=== PATIENT | female | born 1935 | race Caucasian/White ===

== ENCOUNTER 2016-05-26 12:00 | Inpatient (IN) | payer OTHER ==
[~2016-05-26] VITALS: Ht 152.4 cm; Wt 72.0 kg
[~2016-05-26 12:00] MED LIST: ACTOS15 MG PO; AMARYL2 MG PO; AMARYL4 MG PO; AMLOD-VALSA-HC1 EAC4 PO; AMLODIPINE-VAL1 EACH PO; APRESOLINE50 MG PO; ASPIRIN325 MG PO; ATACAND4 MG PO; ATACAND8 MG PO; CALCIUM 600 +1 EAC9 PO; CELEBREX200 MG PO; CRESTOR20 MG PO; Coumadin,Jantoven PO; DONEPEZIL HCL10 MG PO; ECOTRIN325 MG PO; ESOMEPRAZOLE MA40 MG PO; Ecotrin PO; FLEXERIL10 MG PO; HUMULIN R100 UNITS/ SC; HYDRALAZINE HCL10 MG PO; HYDROCHLOROTHIA25 MG PO; JANUVIA100 MG PO; JANUVIA25 M1 PO; LANTUS 3 M100 UNITS1 SC; LOPRESSOR100 M1 PO; LOSARTAN-HCTZ1 EAC3 PO; LOVENOX80 MG/0.8 SC; MELOXICAM7.5 MG PO; METOPROLOL SUC100 MG PO; METOPROLOL TART50 MG PO; NAMENDA XR28 MG PO; NEXIUM40 MG PO; NORCO 5/3251 TABLET PO; NORVASC10 M1 PO; Norvasc PO; Senokot S,Pericolace PO; TYLENOL REGULA325 MG PO; VITAMIN D31000 UNIT PO; Vicodin,Norco 5/325 PO; ZOLOFT25 MG PO; celeBREX PO; warfarin
[2016-05-26 13:29] LABS: ADD MIUA? YES; BILIRUBIN NEGATIVE; BLOOD NEGATIVE; COLOR YELLOW ((YELLOW)); GLUCOSE (STRIP) NEGATIVE; KETONES NEGATIVE; LEUKOCYTES LARGE; NITRITE NEGATIVE; PROTEIN (STRIP) 30; UROBILINOGEN 0.2 MG/DL (0.2-1.0)
[2016-05-26 13:41] LABS: TROP-I INTERPRETATION NEGATIVE; TROPONIN-I < 0.01 ng/mL (0.0-0.30)
[2016-05-26 13:45] LABS: BACTERIA 2+; EPITHELIAL CELLS 1+; MUCUS NONE SEEN; RED BLOOD CELLS RARE /HPF (0-5); UCUL ADDED? YES
[2016-05-26 13:46] LABS: CASTS PRESENT /LPF; COARSE GRANULAR CASTS RARE /LPF; CRYSTALS NONE SEEN; HYALINE CASTS RARE /LPF
[2016-05-26 14:12] LABS: HEMATOCRIT 37.5 % (36.0-46.0); MCH 29.4 PG (29.0-34.0); MCHC 33.1 G/DL (30.0-36.0); MCV 88.9 FL (83-99); MEAN PLAT.VOLUME 10.2 uM^3 (9.5-12.4); PLATELET COUNT 135 K/uL (156-360); RBC DIS.WIDTH-CV 14.3 % (11.8-14.6); RBC DIS.WIDTH-SD 45.9 % (39-53); RED BLOOD COUNT 4.22 M/uL (3.80-5.20); WHITE BLOOD COUNT 13.6 K/uL (4.1-10.2)
[2016-05-26 14:23] LABS: CHLORIDE 110 mEq/L (99-109); POTASSIUM 3.9 mEq/L (3.7-5.4); SODIUM 142 mEq/L (136-147)
[2016-05-26 14:25] LABS: GLUCOSE 210 mg/dL (70-99)
[2016-05-26 14:26] LABS: ANION GAP 13 MEQ/L (2-14)
[2016-05-26 14:29] LABS: GFR ESTIMATE (CALCULATED) 57 mL/min/; UREA NITROGEN (BUN) 17 mg/dL (9-23)
[2016-05-26] MEDS ORDERED: APRESOLINE50 MG PO (15:17)
[2016-05-26] MEDS ORDERED: HUMALOG100 UNIT/1 SC (15:20)
[2016-05-26] MEDS ORDERED: METFORMIN HCL500 M1 PO (15:21)
[2016-05-26 19:32] LABS: Estimated Average Glucose 160 mg/dL (70-123)
[2016-05-26 19:47] LABS: HEMOGLOBIN A1c (GLYCOHEMOGLOB) 7.2 % HGB (Below 5.7)
[2016-05-27 00:12] VITALS: BP 194/81
[2016-05-27 01:33] LABS: POINT-OF-CARE METER ID UU13113717
[2016-05-27 04:35] VITALS: BP 188/77
[2016-05-27 06:56] LABS: HEMATOCRIT 38.8 % (36.0-46.0); MCH 28.5 PG (29.0-34.0); MCHC 31.7 G/DL (30.0-36.0); MEAN PLAT.VOLUME 10.3 uM^3 (9.5-12.4); PLATELET COUNT 151 K/uL (156-360); RBC DIS.WIDTH-CV 14.7 % (11.8-14.6); RBC DIS.WIDTH-SD 48.1 % (39-53); RED BLOOD COUNT 4.31 M/uL (3.80-5.20); WHITE BLOOD COUNT 12.7 K/uL (4.1-10.2)
[2016-05-27 07:12] LABS: INTER. NORMALIZED RATIO 1.1; PROTHROMBIN TIME 10.8 (9.2-11.2); PTT 29.1 (25-32)
[2016-05-27 07:16] LABS: ANION GAP 11 MEQ/L (2-14); CHLORIDE 104 MEQ/L (99-109); GFR ESTIMATE (CALCULATED) 57 mL/min/; GLUCOSE 181 mg/dL (70-99); POTASSIUM 3.9 MEQ/L (3.7-5.4); SAMPLE HEMOLYSIS CHECK 0; SAMPLE ICTERIC CHECK 0; SAMPLE LIPEMIA CHECK 0; SODIUM 140 MEQ/L (136-147); UREA NITROGEN (BUN) 15 mg/dL (9-23)
[2016-05-27 07:59] VITALS: BP 190/79
[2016-05-27 10:25] VITALS: BP 163/87
[2016-05-27 12:39] LABS: POINT-OF-CARE METER ID UU14149397
[2016-05-27 17:25] VITALS: BP 189/77
[2016-05-27 17:39] LABS: POINT-OF-CARE METER ID UU13113717
[2016-05-27 20:07] LABS: POINT-OF-CARE USER ID 515036437
[2016-05-27 21:52] VITALS: BP 151/81
[2016-05-28 00:48] LABS: POINT-OF-CARE METER ID UU13113717
[2016-05-28 03:43] VITALS: BP 147/62
[2016-05-28 06:23] LABS: POINT-OF-CARE METER ID UU14149397
[2016-05-28 06:30] LABS: EOSINOPHIL (%) 1.7 % (0-5); EOSINOPHIL COUNT 0.2 K/uL (0-0.3); HEMATOCRIT 32.8 % (36.0-46.0); IMMATURE GRANULOCYTE (%) 0.3 % (0.0-0.7); LYMPHOCYTE COUNT 1.6 K/uL (1.0-2.8); MCH 27.8 PG (29.0-34.0); MCHC 30.8 G/DL (30.0-36.0); MCV 90.4 FL (83-99); MEAN PLAT.VOLUME 10.9 uM^3 (9.5-12.4); MONOCYTE (%) 6.6 % (3-12); MONOCYTE COUNT 0.8 K/uL (0-0.8); NEUTROPHIL (%) 78.4 % (45-76); NEUTROPHIL COUNT 9.8 K/uL (1.8-6.4); PLATELET COUNT 110 K/uL (156-360); RBC DIS.WIDTH-CV 14.9 % (11.8-14.6); RBC DIS.WIDTH-SD 48.7 % (39-53); RED BLOOD COUNT 3.63 M/uL (3.80-5.20); WHITE BLOOD COUNT 12.5 K/uL (4.1-10.2)
[2016-05-28 06:44] LABS: ANION GAP 11 MEQ/L (2-14); CHLORIDE 107 MEQ/L (99-109); GFR ESTIMATE (CALCULATED) 39 mL/min/; GLUCOSE 169 mg/dL (70-99); SAMPLE HEMOLYSIS CHECK 0; SAMPLE ICTERIC CHECK 0; SAMPLE LIPEMIA CHECK 0; SODIUM 141 MEQ/L (136-147)
[2016-05-28 06:56] LABS: UREA NITROGEN (BUN) 24 mg/dL (9-23)
[2016-05-28 08:07] VITALS: BP 141/64
[2016-05-28 11:38] VITALS: BP 147/81
[2016-05-28 11:57] LABS: POINT-OF-CARE METER ID UU13113717
[2016-05-28 16:01] LABS: POINT-OF-CARE METER ID UU13113717
[2016-05-28 16:28] VITALS: BP 140/65
[2016-05-28 19:45] VITALS: BP 178/72
[2016-05-28 22:59] LABS: POINT-OF-CARE METER ID UU14149397
[2016-05-29] VITALS (7 sets, daily range): BP systolic 140–203; BP diastolic 58–86
[2016-05-29 05:55] LABS: HEMATOCRIT 30.6 % (36.0-46.0); MCV 89.5 FL (83-99)
[2016-05-29 06:16] LABS: POINT-OF-CARE METER ID UU14149397
[2016-05-29 06:26] LABS: ANION GAP 12 MEQ/L (2-14); CHLORIDE 107 MEQ/L (99-109); GFR ESTIMATE (CALCULATED) 51 mL/min/; GLUCOSE 225 mg/dL (70-99); POTASSIUM 3.7 MEQ/L (3.7-5.4); SAMPLE HEMOLYSIS CHECK 0; SAMPLE ICTERIC CHECK 0; SAMPLE LIPEMIA CHECK 0; SODIUM 141 MEQ/L (136-147); UREA NITROGEN (BUN) 26 mg/dL (9-23)
[2016-05-29 10:47] LABS: C DIFF TOXIN NEGATIVE (NEGATIVE)
[2016-05-29 10:50] LABS: PROBE CHECK PASS; SPECIMEN PROCESSING CONTROL PASS
[2016-05-30 03:53] VITALS: BP 177/74
[2016-05-30 06:58] LABS: POINT-OF-CARE METER ID UU14149397
[2016-05-30 07:45] VITALS: BP 173/75
[2016-05-30 11:52] LABS: POINT-OF-CARE METER ID UU13113717
[2016-05-30] MEDS ORDERED: LOVENOX40 MG/0.4 SC (12:41)
[2016-05-30] MEDS ORDERED: CLONIDINE1 EACH TD (12:41)
[2016-05-30] MEDS ORDERED: BENADRYL25 MG PO (12:41)
[2016-05-30] MEDS ORDERED: VITAMIN D-32000 UNI2 PO (12:42)
[2016-05-30] MEDS ORDERED: THERAGRAN1 TABLET PO (12:42)
[2016-05-30] MEDS ORDERED: LIDOCAINE700 MG TD (12:43)
[2016-05-30] MEDS ORDERED: GLUCAGEN1 MG IM/SC (12:43)
[2016-05-30] MEDS ORDERED: DOCUSATE SODIU100 MG PO (12:44)
[2016-05-30] MEDS ORDERED: BISAC-EVAC10 MG PR (12:44)
[2016-05-30] MEDS ORDERED: NOVOLOG PE100 UNITS/ SC (12:44)
[2016-05-30] MEDS ORDERED: VALSARTAN160 MG PO (12:45)
[2016-05-30 12:49] VITALS: BP 143/67
== END 2016-05-30 15:46 | DRG 470 ==
LOC: EME → EDBD 12:00 → EME 12:00 → EDOF 15:38 → 3EAST 15:38
PROVIDERS: Emergency Medicine; Family Medicine; Family Medicine Sports Medicine; Orthopaedic Surgery
PROC: 0SRR019 Replacement of Right Hip Joint, Femoral Surface with Metal Synthetic Substitute, Cemented, Open Approach (ICD-10-PCS; principal; 2016-05-27)
DX: S72.001A Fracture of unspecified part of neck of right femur, initial encounter for closed fracture (principal); N39.0 Urinary tract infection, site not specified; S02.40CA Maxillary fracture, right side, initial encounter for closed fracture; S02.31XA Fracture of orbital floor, right side, initial encounter for closed fracture; E11.9 Type 2 diabetes mellitus without complications; I10 Essential (primary) hypertension; K21.9 Gastro-esophageal reflux disease without esophagitis; I48.0 Paroxysmal atrial fibrillation; Z87.891 Personal history of nicotine dependence; W06.XXXA Fall from bed, initial encounter; Y92.032 Bedroom in apartment as the place of occurrence of the external cause; F03.90 Unspecified dementia, unspecified severity, without behavioral disturbance, psychotic disturbance, mood disturbance, and anxiety; I25.10 Atherosclerotic heart disease of native coronary artery without angina pectoris; I25.2 Old myocardial infarction; Z95.1 Presence of aortocoronary bypass graft; M19.90 Unspecified osteoarthritis, unspecified site; I45.10 Unspecified right bundle-branch block; S50.11XA Contusion of right forearm, initial encounter; E78.5 Hyperlipidemia, unspecified; I35.0 Nonrheumatic aortic (valve) stenosis
CPT/HCPCS: 70450; 70486; 71010; 73502; 73700; 80048; 81003; 82948; 83036; 84484; 85014; 85018; 85025; 85027; 85610; 85730; 87086; 87493; 88305; 88311; 94799; 97530 GP; 99281; 99285; C1713; J0696; J1650; J1815; J1885; J2250; J2270; J2405; J3010; J7030; J7050; J7120; S0020

== ENCOUNTER 2016-06-21 14:33 | Inpatient (IN) | payer OTHER ==
[~2016-06-21] VITALS: Ht 160 cm; Wt 77.8 kg
[~2016-06-21 14:33] MED LIST changes: +BENADRYL25 MG PO; +BISAC-EVAC10 MG PR; +CLONIDINE1 EACH TD; +DOCUSATE SODIU100 MG PO; +GLUCAGEN1 MG IM/SC; +HUMALOG100 UNIT/1 SC; +LIDOCAINE700 MG TD; +LOVENOX40 MG/0.4 SC; +METFORMIN HCL500 M1 PO; +NOVOLOG PE100 UNITS/ SC; +THERAGRAN1 TABLET PO; +VALSARTAN160 MG PO; +VITAMIN D-32000 UNI2 PO
[2016-06-21 15:38] LABS: EOSINOPHIL (%) 0.9 % (0-5); EOSINOPHIL COUNT 0.1 K/uL (0-0.3); HEMATOCRIT 32.6 % (36.0-46.0); IMMATURE GRANULOCYTE (%) 0.5 % (0.0-0.7); IMMATURE GRANULOCYTE COUNT 0.6 K/uL; LYMPHOCYTE COUNT 1.2 K/uL (1.0-2.8); MCH 28.2 PG (29.0-34.0); MCHC 31.6 G/DL (30.0-36.0); MCV 89.3 FL (83-99); MONOCYTE COUNT 0.7 K/uL (0-0.8); NEUTROPHIL (%) 82.8 % (45-76); RBC DIS.WIDTH-CV 15.1 % (11.8-14.6); RBC DIS.WIDTH-SD 47.7 % (39-53); RED BLOOD COUNT 3.65 M/uL (3.80-5.20)
[2016-06-21 15:39] LABS: MEAN PLAT.VOLUME 9.8 uM^3 (9.5-12.4); PLATELET COUNT 202 K/uL (156-360); WHITE BLOOD COUNT 12.1 K/uL (4.1-10.2)
[2016-06-21 15:46] LABS: INTER. NORMALIZED RATIO 1.1; PROTHROMBIN TIME 10.9 (9.2-11.2)
[2016-06-21 15:46] LABS: CHLORIDE 113 mEq/L (99-109); POTASSIUM 4.4 mEq/L (3.7-5.4); SODIUM 143 mEq/L (136-147)
[2016-06-21 15:48] LABS: GLUCOSE 178 mg/dL (70-99)
[2016-06-21 15:49] LABS: ANION GAP 12 MEQ/L (2-14)
[2016-06-21 15:52] LABS: GFR ESTIMATE (CALCULATED) 42 mL/min/
[2016-06-21 15:53] LABS: UREA NITROGEN (BUN) 28 mg/dL (9-23)
[2016-06-21] MEDS ORDERED: AMLOD-VALSA-HC1 EAC4 PO (16:25)
[2016-06-21] MEDS ORDERED: ATORVASTATIN CA40 MG PO (16:26)
[2016-06-21] MEDS ORDERED: CLONIDINE1 EACH TD (16:26)
[2016-06-21] MEDS ORDERED: ENOXAPARIN40 MG/0.4 SC (16:27)
[2016-06-21] MEDS ORDERED: LIDODERM 5% P1 PATCH TD (16:28)
[2016-06-21] MEDS ORDERED: OMEPRAZOLE40 M1 PO (16:30)
[2016-06-21] MEDS ORDERED: TAMIFLU75 MG PO (16:30)
[2016-06-21] MEDS ORDERED: THERAGRAN-M PR1 EAC1 PO (16:31)
[2016-06-21] MEDS ORDERED: THERAGRAN1 TABLET PO (16:32)
[2016-06-21] MEDS ORDERED: VITAMIN D-32000 UNI2 PO (16:32)
[2016-06-21] MEDS ORDERED: NOVOLOG PE100 UNITS/ SC (16:34)
[2016-06-21] MEDS ORDERED: TYLENOL REGULA325 MG PO (16:35)
[2016-06-21] MEDS ORDERED: BENADRYL25 MG PO (16:36)
[2016-06-21 21:53] LABS: POINT-OF-CARE METER ID UU13113675; POINT-OF-CARE USER ID ADMSLT55
[2016-06-21 21:55] LABS: HEMATOCRIT 31.8 % (36.0-46.0); MCH 28.7 PG (29.0-34.0); MCHC 31.4 G/DL (30.0-36.0); MCV 91.1 FL (83-99); MEAN PLAT.VOLUME 10.6 uM^3 (9.5-12.4); PLATELET COUNT 217 K/uL (156-360); RBC DIS.WIDTH-CV 15.3 % (11.8-14.6); RBC DIS.WIDTH-SD 51.2 % (39-53); RED BLOOD COUNT 3.49 M/uL (3.80-5.20); WHITE BLOOD COUNT 17.5 K/uL (4.1-10.2)
[2016-06-21 22:29] VITALS: BP 151/73
[2016-06-22] VITALS: BP 107/51
[2016-06-22 01:49] LABS: METH RESISTANT S AUREUS PCR NEGATIVE (NEGATIVE)
[2016-06-22 02:06] LABS: PROBE CHECK PASS; SPECIMEN PROCESSING CONTROL PASS
[2016-06-22 05:44] LABS: HEMATOCRIT 28.2 % (36.0-46.0); MCV 91.6 FL (83-99)
[2016-06-22 05:57] LABS: ANION GAP 13 MEQ/L (2-14); CHLORIDE 110 MEQ/L (99-109); GFR ESTIMATE (CALCULATED) 33 mL/min/; GLUCOSE 176 mg/dL (70-99); POTASSIUM 4.9 MEQ/L (3.7-5.4); SAMPLE HEMOLYSIS CHECK 1; SAMPLE ICTERIC CHECK 0; SAMPLE LIPEMIA CHECK 0; SODIUM 140 MEQ/L (136-147); UREA NITROGEN (BUN) 33 mg/dL (9-23)
[2016-06-22 07:57] VITALS: BP 145/65
[2016-06-22 11:18] LABS: POINT-OF-CARE METER ID UU14149397
[2016-06-22 11:34] VITALS: BP 116/54
[2016-06-22 16:11] VITALS: BP 107/50
[2016-06-22 20:35] VITALS: BP 135/61
[2016-06-23] VITALS (9 sets, daily range): BP systolic 117–161; BP diastolic 60–80
[2016-06-23 06:18] LABS: EOSINOPHIL (%) 5.4 % (0-5); EOSINOPHIL COUNT 0.5 K/uL (0-0.3); HEMATOCRIT 23.7 % (36.0-46.0); IMMATURE GRANULOCYTE (%) 0.4 % (0.0-0.7); MCH 26.7 PG (29.0-34.0); MCHC 30.4 G/DL (30.0-36.0); MCV 87.8 FL (83-99); MONOCYTE (%) 5.1 % (3-12); MONOCYTE COUNT 0.5 K/uL (0-0.8); NEUTROPHIL (%) 77.9 % (45-76); RBC DIS.WIDTH-CV 15.6 % (11.8-14.6); RBC DIS.WIDTH-SD 49.8 % (39-53)
[2016-06-23 06:26] LABS: ANION GAP 10 MEQ/L (2-14); CHLORIDE 107 MEQ/L (99-109); GFR ESTIMATE (CALCULATED) 29 mL/min/; GLUCOSE 75 mg/dL (70-99); POTASSIUM 3.8 MEQ/L (3.7-5.4); SAMPLE HEMOLYSIS CHECK 0; SAMPLE ICTERIC CHECK 0; SAMPLE LIPEMIA CHECK 0; SODIUM 135 MEQ/L (136-147); UREA NITROGEN (BUN) 36 mg/dL (9-23)
[2016-06-23 07:35] LABS: MEAN PLAT.VOLUME 10.4 uM^3 (9.5-12.4); PLAT.SUFFICIENCY ADEQUATE; PLATELET COUNT 137 K/uL (156-360); USER ID BLP
[2016-06-23 12:14] LABS: POINT-OF-CARE METER ID UU14188577
[2016-06-23 15:59] LABS: POINT-OF-CARE METER ID UU14149397
[2016-06-23 22:00] LABS: POINT-OF-CARE METER ID UU14188577
[2016-06-24] VITALS: BP 130/63
[2016-06-24 01:02] VITALS: BP 171/71
[2016-06-24 02:06] VITALS: BP 170/72
[2016-06-24 07:30] LABS: ANION GAP 7 MEQ/L (2-14); CHLORIDE 113 MEQ/L (99-109); GFR ESTIMATE (CALCULATED) 39 mL/min/; GLUCOSE 83 mg/dL (70-99); POTASSIUM 3.7 MEQ/L (3.7-5.4); SAMPLE HEMOLYSIS CHECK 0; SAMPLE ICTERIC CHECK 0; SAMPLE LIPEMIA CHECK 0; SODIUM 140 MEQ/L (136-147); UREA NITROGEN (BUN) 33 mg/dL (9-23)
[2016-06-24 07:33] LABS: EOSINOPHIL (%) 4.8 % (0-5); EOSINOPHIL COUNT 0.4 K/uL (0-0.3); HEMATOCRIT 28.8 % (36.0-46.0); IMMATURE GRANULOCYTE (%) 0.7 % (0.0-0.7); IMMATURE GRANULOCYTE COUNT 0.1 K/uL; LYMPHOCYTE COUNT 1.3 K/uL (1.0-2.8); MCH 28.8 PG (29.0-34.0); MCHC 33.7 G/DL (30.0-36.0); MCV 85.5 FL (83-99); MEAN PLAT.VOLUME 10.5 uM^3 (9.5-12.4); MONOCYTE (%) 5.6 % (3-12); MONOCYTE COUNT 0.5 K/uL (0-0.8); NEUTROPHIL (%) 73.7 % (45-76); NEUTROPHIL COUNT 6.4 K/uL (1.8-6.4); PLATELET COUNT 129 K/uL (156-360); RBC DIS.WIDTH-CV 15.9 % (11.8-14.6); RBC DIS.WIDTH-SD 49.3 % (39-53); WHITE BLOOD COUNT 8.6 K/uL (4.1-10.2)
[2016-06-24 07:35] LABS: RED BLOOD COUNT 3.37 M/uL (3.80-5.20)
[2016-06-24 08:11] VITALS: BP 168/74
[2016-06-24 10:49] LABS: POINT-OF-CARE METER ID UU14188577
[2016-06-24 16:14] VITALS: BP 169/69
[2016-06-24 22:05] LABS: POINT-OF-CARE METER ID UU14188577
[2016-06-25 00:07] VITALS: BP 164/69
[2016-06-25 02:39] LABS: ADD MIUA? YES; BILIRUBIN NEGATIVE; BLOOD NEGATIVE; COLOR YELLOW ((YELLOW)); GLUCOSE (STRIP) NEGATIVE; KETONES NEGATIVE; LEUKOCYTES MODERATE; NITRITE POSITIVE; PROTEIN (STRIP) NEGATIVE; SPECIFIC GRAVITY 1.008 (1.000-1.030); UROBILINOGEN 0.2 MG/DL (0.2-1.0)
[2016-06-25 02:51] LABS: BACTERIA 3+ /HPF; EPITHELIAL CELLS NONE SEEN /HPF; MUCUS NONE SEEN /LPF; WHITE BLOOD CELLS 30-40 /HPF (0-5)
[2016-06-25 05:26] LABS: EOSINOPHIL COUNT 0.4 K/uL (0-0.3); IMMATURE GRANULOCYTE (%) 0.8 % (0.0-0.7); IMMATURE GRANULOCYTE COUNT 0.1 K/uL; LYMPHOCYTE COUNT 1.3 K/uL (1.0-2.8); MCH 27.9 PG (29.0-34.0); MCHC 32.8 G/DL (30.0-36.0); MCV 85.3 FL (83-99); MEAN PLAT.VOLUME 11.1 uM^3 (9.5-12.4); MONOCYTE COUNT 0.5 K/uL (0-0.8); NEUTROPHIL (%) 73.4 % (45-76); NEUTROPHIL COUNT 6.5 K/uL (1.8-6.4); PLATELET COUNT 156 K/uL (156-360); RBC DIS.WIDTH-CV 15.9 % (11.8-14.6); RBC DIS.WIDTH-SD 48.9 % (39-53); WHITE BLOOD COUNT 8.8 K/uL (4.1-10.2)
[2016-06-25 06:17] LABS: ANION GAP 10 MEQ/L (2-14); CHLORIDE 113 MEQ/L (99-109); GFR ESTIMATE (CALCULATED) 51 mL/min/; GLUCOSE 62 mg/dL (70-99); POTASSIUM 4.1 MEQ/L (3.7-5.4); SAMPLE HEMOLYSIS CHECK 2; SAMPLE ICTERIC CHECK 0; SAMPLE LIPEMIA CHECK 0; SODIUM 141 MEQ/L (136-147); UREA NITROGEN (BUN) 29 mg/dL (9-23)
[2016-06-25 06:46] LABS: POINT-OF-CARE METER ID UU14188577
[2016-06-25 07:43] LABS: C DIFF TOXIN NEGATIVE (NEGATIVE)
[2016-06-25 07:44] LABS: PROBE CHECK PASS; SPECIMEN PROCESSING CONTROL PASS
[2016-06-25 08:09] VITALS: BP 141/63
[2016-06-25 12:00] LABS: POINT-OF-CARE METER ID UU14188577
[2016-06-25 16:49] VITALS: BP 167/79
[2016-06-25 17:03] LABS: POINT-OF-CARE METER ID UU14188577
[2016-06-25 22:12] LABS: POINT-OF-CARE METER ID UU14188577
[2016-06-26 00:12] VITALS: BP 170/81
[2016-06-26 05:24] LABS: EOSINOPHIL (%) 4.7 % (0-5); EOSINOPHIL COUNT 0.4 K/uL (0-0.3); HEMATOCRIT 28.7 % (36.0-46.0); IMMATURE GRANULOCYTE (%) 0.7 % (0.0-0.7); IMMATURE GRANULOCYTE COUNT 0.1 K/uL; LYMPHOCYTE COUNT 1.2 K/uL (1.0-2.8); MCH 28.4 PG (29.0-34.0); MCHC 32.4 G/DL (30.0-36.0); MCV 87.8 FL (83-99); MEAN PLAT.VOLUME 10.6 uM^3 (9.5-12.4); MONOCYTE (%) 8.2 % (3-12); MONOCYTE COUNT 0.6 K/uL (0-0.8); NEUTROPHIL (%) 70.7 % (45-76); NEUTROPHIL COUNT 5.2 K/uL (1.8-6.4); PLATELET COUNT 142 K/uL (156-360); RBC DIS.WIDTH-CV 15.9 % (11.8-14.6); RBC DIS.WIDTH-SD 50.5 % (39-53); RED BLOOD COUNT 3.27 M/uL (3.80-5.20); WHITE BLOOD COUNT 7.4 K/uL (4.1-10.2)
[2016-06-26 05:59] LABS: ANION GAP 11 MEQ/L (2-14); CHLORIDE 113 MEQ/L (99-109); GFR ESTIMATE (CALCULATED) 51 mL/min/; POTASSIUM 3.8 MEQ/L (3.7-5.4); SAMPLE HEMOLYSIS CHECK 0; SAMPLE ICTERIC CHECK 0; SAMPLE LIPEMIA CHECK 0; SODIUM 142 MEQ/L (136-147); UREA NITROGEN (BUN) 23 mg/dL (9-23)
[2016-06-26 06:02] LABS: GLUCOSE 91 mg/dL (70-99)
[2016-06-26 06:46] LABS: POINT-OF-CARE METER ID UU14188577
[2016-06-26 07:46] VITALS: BP 179/79
[2016-06-26 12:31] LABS: POINT-OF-CARE METER ID UU14188577
[2016-06-26 15:35] VITALS: BP 181/78
[2016-06-26 16:53] LABS: POINT-OF-CARE METER ID UU14188577
[2016-06-26 22:09] LABS: POINT-OF-CARE METER ID UU14149397
[2016-06-26 23:55] VITALS: BP 159/70
[2016-06-27 06:21] LABS: EOSINOPHIL (%) 3.9 % (0-5); EOSINOPHIL COUNT 0.3 K/uL (0-0.3); HEMATOCRIT 28.7 % (36.0-46.0); IMMATURE GRANULOCYTE (%) 0.7 % (0.0-0.7); IMMATURE GRANULOCYTE COUNT 0.1 K/uL; LYMPHOCYTE COUNT 1.3 K/uL (1.0-2.8); MCH 28.7 PG (29.0-34.0); MCHC 32.8 G/DL (30.0-36.0); MCV 87.5 FL (83-99); MEAN PLAT.VOLUME 10.8 uM^3 (9.5-12.4); MONOCYTE (%) 8.4 % (3-12); MONOCYTE COUNT 0.6 K/uL (0-0.8); NEUTROPHIL (%) 68.8 % (45-76); NEUTROPHIL COUNT 4.9 K/uL (1.8-6.4); PLATELET COUNT 155 K/uL (156-360); RBC DIS.WIDTH-CV 15.8 % (11.8-14.6); RBC DIS.WIDTH-SD 50.5 % (39-53); RED BLOOD COUNT 3.28 M/uL (3.80-5.20); WHITE BLOOD COUNT 7.1 K/uL (4.1-10.2)
[2016-06-27 06:46] LABS: ANION GAP 8 MEQ/L (2-14); CHLORIDE 114 MEQ/L (99-109); GFR ESTIMATE (CALCULATED) > 59 mL/min/; GLUCOSE 68 mg/dL (70-99); POTASSIUM 3.8 MEQ/L (3.7-5.4); SAMPLE HEMOLYSIS CHECK 0; SAMPLE ICTERIC CHECK 0; SAMPLE LIPEMIA CHECK 0; SODIUM 143 MEQ/L (136-147); UREA NITROGEN (BUN) 19 mg/dL (9-23)
[2016-06-27 09:08] VITALS: BP 147/65
[2016-06-27 12:14] LABS: POINT-OF-CARE METER ID UU14188577
[2016-06-27 16:09] LABS: POINT-OF-CARE METER ID UU14188577
[2016-06-27 16:51] VITALS: BP 160/88
[2016-06-27 22:45] LABS: POINT-OF-CARE METER ID UU14149397
[2016-06-28] VITALS: BP 167/72
[2016-06-28 06:20] LABS: EOSINOPHIL (%) 2.1 % (0-5); EOSINOPHIL COUNT 0.2 K/uL (0-0.3); HEMATOCRIT 27.6 % (36.0-46.0); IMMATURE GRANULOCYTE (%) 0.8 % (0.0-0.7); IMMATURE GRANULOCYTE COUNT 0.1 K/uL; LYMPHOCYTE COUNT 1.4 K/uL (1.0-2.8); MCH 28.2 PG (29.0-34.0); MCHC 32.2 G/DL (30.0-36.0); MCV 87.3 FL (83-99); MEAN PLAT.VOLUME 10.8 uM^3 (9.5-12.4); MONOCYTE (%) 7.1 % (3-12); MONOCYTE COUNT 0.7 K/uL (0-0.8); NEUTROPHIL (%) 76.3 % (45-76); NEUTROPHIL COUNT 7.8 K/uL (1.8-6.4); PLATELET COUNT 160 K/uL (156-360); RBC DIS.WIDTH-CV 15.9 % (11.8-14.6); RBC DIS.WIDTH-SD 49.9 % (39-53); RED BLOOD COUNT 3.16 M/uL (3.80-5.20); WHITE BLOOD COUNT 10.2 K/uL (4.1-10.2)
[2016-06-28 06:29] LABS: ANION GAP 8 MEQ/L (2-14); CHLORIDE 113 MEQ/L (99-109); GFR ESTIMATE (CALCULATED) > 59 mL/min/; POTASSIUM 3.6 MEQ/L (3.7-5.4); SAMPLE HEMOLYSIS CHECK 0; SAMPLE ICTERIC CHECK 0; SAMPLE LIPEMIA CHECK 0; SODIUM 141 MEQ/L (136-147); UREA NITROGEN (BUN) 15 mg/dL (9-23)
[2016-06-28 06:39] LABS: GLUCOSE 181 mg/dL (70-99)
[2016-06-28 08:26] VITALS: BP 170/74
[2016-06-28 11:21] LABS: POINT-OF-CARE METER ID UU14149397
[2016-06-28 17:41] VITALS: BP 150/68
[2016-06-28 22:30] LABS: POINT-OF-CARE METER ID UU14149397
[2016-06-29 00:05] VITALS: BP 156/67
[2016-06-29 05:03] LABS: HEMATOCRIT 29.6 % (36.0-46.0); MCH 28.6 PG (29.0-34.0); MCHC 32.4 G/DL (30.0-36.0); MCV 88.1 FL (83-99); MEAN PLAT.VOLUME 10.2 uM^3 (9.5-12.4); PLATELET COUNT 172 K/uL (156-360); RBC DIS.WIDTH-CV 16.1 % (11.8-14.6); RBC DIS.WIDTH-SD 49.2 % (39-53); RED BLOOD COUNT 3.36 M/uL (3.80-5.20); WHITE BLOOD COUNT 7.6 K/uL (4.1-10.2)
[2016-06-29 05:04] LABS: EOSINOPHIL (%) 2.6 % (0-5); EOSINOPHIL COUNT 0.2 K/uL (0-0.3); IMMATURE GRANULOCYTE (%) 1.2 % (0.0-0.7); IMMATURE GRANULOCYTE COUNT 0.9 K/uL; LYMPHOCYTE COUNT 1.8 K/uL (1.0-2.8); MONOCYTE (%) 8.6 % (3-12); MONOCYTE COUNT 0.7 K/uL (0-0.8); NEUTROPHIL (%) 63.5 % (45-76); NEUTROPHIL COUNT 4.8 K/uL (1.8-6.4)
[2016-06-29 05:13] LABS: CHLORIDE 115 mEq/L (99-109); POTASSIUM 3.8 mEq/L (3.7-5.4); SODIUM 142 mEq/L (136-147)
[2016-06-29 05:16] LABS: ANION GAP 8 MEQ/L (2-14)
[2016-06-29 05:19] LABS: GFR ESTIMATE (CALCULATED) > 59 mL/min/
[2016-06-29 05:20] LABS: UREA NITROGEN (BUN) 12 mg/dL (9-23)
[2016-06-29 05:22] LABS: GLUCOSE 87 mg/dL (70-99)
[2016-06-29 08:42] VITALS: BP 147/78
[2016-06-29] MEDS ORDERED: CELECOXIB200 MG PO (13:26)
[2016-06-29] MEDS ORDERED: ONDANSETRON ODT4 MG PO (13:27)
[2016-06-29] MEDS ORDERED: SENNA PLUS TAB1 EACH PO (13:27)
[2016-06-29] MEDS ORDERED: ENDOCET 5-3251 EACH PO (13:28)
[2016-06-29] MEDS ORDERED: LO-DOSE ASPIRIN81 M2 PO (13:28)
== END 2016-06-29 15:49 | DRG 481 ==
LOC: EME 14:33 → 3EAST 16:58 → EDOF 16:58 → 3EAST 21:53
PROVIDERS: Emergency Medicine; Family Medicine; Hospitalist; Orthopaedic Surgery; Physician Assistant
PROC: 0QS706Z Reposition Left Upper Femur with Intramedullary Internal Fixation Device, Open Approach (ICD-10-PCS; principal; 2016-06-21)
PROC: 30233N1 Transfusion of Nonautologous Red Blood Cells into Peripheral Vein, Percutaneous Approach (ICD-10-PCS; 2016-06-23)
DX: S72.142A Displaced intertrochanteric fracture of left femur, initial encounter for closed fracture (principal); N17.9 Acute kidney failure, unspecified; N39.0 Urinary tract infection, site not specified; F05 Delirium due to known physiological condition; W18.39XA Other fall on same level, initial encounter; E11.9 Type 2 diabetes mellitus without complications; K21.9 Gastro-esophageal reflux disease without esophagitis; F03.90 Unspecified dementia, unspecified severity, without behavioral disturbance, psychotic disturbance, mood disturbance, and anxiety; Z95.0 Presence of cardiac pacemaker; I10 Essential (primary) hypertension; I25.10 Atherosclerotic heart disease of native coronary artery without angina pectoris; I45.10 Unspecified right bundle-branch block; E66.9 Obesity, unspecified; M85.842 Other specified disorders of bone density and structure, left hand; Z96.641 Presence of right artificial hip joint; Z96.652 Presence of left artificial knee joint; R33.9 Retention of urine, unspecified; R32 Unspecified urinary incontinence; B96.1 Klebsiella pneumoniae [K. pneumoniae] as the cause of diseases classified elsewhere; E87.6 Hypokalemia; Z68.30 Body mass index [BMI] 30.0-30.9, adult; D64.9 Anemia, unspecified; Z98.61 Coronary angioplasty status; Z88.1 Allergy status to other antibiotic agents; Z79.4 Long term (current) use of insulin; I25.2 Old myocardial infarction; Z88.5 Allergy status to narcotic agent; Y92.129 Unspecified place in nursing home as the place of occurrence of the external cause
CPT/HCPCS: 71010; 73080; 73130; 73502; 73551; 73552; 76000; 76775; 80048; 81003; 82948; 85014; 85018; 85025; 85027; 85610; 85730; 86850; 86900; 86901; 86920; 87077; 87086; 87186; 87493; 87641; 93005; 93971; 94799; 97530 GP; 99281; 99285; C1713; J0690; J0696; J1650; J1815; J1940; J2270; J2405; J3010; J7050; P9016

== ENCOUNTER 2017-03-15 23:33 | Emergency (ER) | payer OTHER ==
[~2017-03-15] VITALS: Ht 162.6 cm; Wt 61.1 kg
[~2017-03-15 23:33] MED LIST changes: +ATORVASTATIN CA40 MG PO; +CELECOXIB200 MG PO; +ENDOCET 5-3251 EACH PO; +ENOXAPARIN40 MG/0.4 SC; +LIDODERM 5% P1 PATCH TD; +LO-DOSE ASPIRIN81 M2 PO; +OMEPRAZOLE40 M1 PO; +ONDANSETRON ODT4 MG PO; +SENNA PLUS TAB1 EACH PO; +TAMIFLU75 MG PO; +THERAGRAN-M PR1 EAC1 PO
[2017-03-16 00:45] LABS: EOSINOPHIL (%) 0 % (0-5); HEMATOCRIT 35.4 % (36.0-46.0); IMMATURE GRANULOCYTE (%) 0.2 % (0.0-0.7); INSTRUMENT ABS NEUTROPHIL CT 8.2 K/uL; MCH 27.9 PG (29.0-34.0); MCHC 32.2 G/DL (30.0-36.0); MCV 86.8 FL (83-99); MEAN PLAT.VOLUME 10.6 uM^3 (9.5-12.4); MONOCYTE (%) 1.3 % (3-12); MONOCYTE COUNT 0.1 K/uL (0-0.8); NEUTROPHIL (%) 88.2 % (45-76); NEUTROPHIL COUNT 8.2 K/uL (1.8-6.4); PLATELET COUNT 195 K/uL (156-360); RED BLOOD COUNT 4.08 M/uL (3.80-5.20); WHITE BLOOD COUNT 9.3 K/uL (4.1-10.2)
[2017-03-16 00:57] LABS: CHLORIDE 109 mEq/L (99-109); POTASSIUM 3.6 mEq/L (3.7-5.4); SODIUM 141 mEq/L (136-147)
[2017-03-16 00:59] LABS: GLUCOSE 269 mg/dL (70-99)
[2017-03-16 01:00] LABS: ANION GAP 12 MEQ/L (2-14)
[2017-03-16 01:03] LABS: GFR ESTIMATE (CALCULATED) 33 mL/min/; UREA NITROGEN (BUN) 45 mg/dL (9-23)
[2017-03-16 01:09] LABS: TROP-I INTERPRETATION NEGATIVE; TROPONIN-I 0.01 ng/mL (0.0-0.30)
[2017-03-16 02:40] VITALS: BP 149/56
== END 2017-03-16 03:01 | disposition home or self-care (01) ==
LOC: EME 23:33
PROVIDERS: Emergency Medicine
DX: S80.00XA Contusion of unspecified knee, initial encounter (principal); S09.90XA Unspecified injury of head, initial encounter; I25.2 Old myocardial infarction; K21.9 Gastro-esophageal reflux disease without esophagitis; I10 Essential (primary) hypertension; E78.5 Hyperlipidemia, unspecified; F03.90 Unspecified dementia, unspecified severity, without behavioral disturbance, psychotic disturbance, mood disturbance, and anxiety; Z96.641 Presence of right artificial hip joint; Z95.1 Presence of aortocoronary bypass graft; Z79.4 Long term (current) use of insulin; Z88.0 Allergy status to penicillin; Z88.8 Allergy status to other drugs, medicaments and biological substances
CPT/HCPCS: 70450; 73564; 80048; 84484; 85025; 93005; 99281; 99285

== ENCOUNTER 2017-04-29 09:29 | Inpatient (IN) | payer OTHER ==
[~2017-04-29] VITALS: Ht 195.6 cm; Wt 65.4 kg
[~2017-04-29 09:29] MED LIST changes: -ZOLOFT25 MG PO; +ZOLOFT50 MG PO
[2017-04-29 10:30] LABS: HEMATOCRIT 38.1 % (36.0-46.0); HEMOGLOBIN 12.1 G/DL (11.9-15.5); MCH 28.6 PG (29.0-34.0); MCHC 31.8 G/DL (30.0-36.0); MCV 90.1 FL (83-99); PLATELET COUNT 168 K/uL (156-360); RBC DIS.WIDTH-CV 15.8 % (11.8-14.6); RBC DIS.WIDTH-SD 51.8 % (39-53); RED BLOOD COUNT 4.23 M/uL (3.80-5.20); WHITE BLOOD COUNT 8.8 K/uL (4.1-10.2)
[2017-04-29 10:40] LABS: APPEARANCE CLOUDY ((CLEAR)); BILIRUBIN NEGATIVE; BLOOD MODERATE; COLOR YELLOW ((YELLOW)); GLUCOSE (STRIP) NEGATIVE; KETONES NEGATIVE; LEUKOCYTES LARGE; NITRITE NEGATIVE; PROTEIN (STRIP) TRACE; SPECIFIC GRAVITY 1.015 (1.000-1.030); UROBILINOGEN 0.2 MG/DL (0.2-1.0)
[2017-04-29 10:41] LABS: URINE COMMENT MIUA ON UNSPUN URINE
[2017-04-29 10:42] LABS: EPITHELIAL CELLS 1+ /HPF
[2017-04-29 10:43] LABS: BACTERIA 3+ /HPF; HYALINE CASTS 0-5 /LPF; MUCUS NONE SEEN /LPF; UCUL ADDED? YES
[2017-04-29 10:44] LABS: ALBUMIN 3.4 g/dL (3.2-4.8); CHLORIDE 107 mEq/L (99-109); POTASSIUM 4.1 mEq/L (3.7-5.4); SODIUM 141 mEq/L (136-147)
[2017-04-29 10:47] LABS: GLUCOSE 160 mg/dL (70-99); TOTAL PROTEIN 6.3 g/dL (6.4-8.3)
[2017-04-29 10:49] LABS: TOTAL BILIRUBIN 0.4 mg/dL (0.0-1.0)
[2017-04-29 10:50] LABS: ALKALINE PHOSPHATASE 66 IU/L (3-129); CREATININE 1.1 mg/dL (0.6-1.3); GFR ESTIMATE (CALCULATED) 51 mL/min/
[2017-04-29 10:51] LABS: UREA NITROGEN (BUN) 10 mg/dL (9-23)
[2017-04-29 10:52] LABS: AST (GOT) 23 IU/L (2-34); TROP-I INTERPRETATION NEGATIVE; TROPONIN-I 0.07 ng/mL (0.0-0.30)
[2017-04-29 10:53] LABS: ALT (GPT) 15 IU/L (3-49); CREATINE KINASE 82 IU/L (1-294)
[2017-04-29] MEDS ORDERED: CLONIDINE1 EAC1 TD (15:06)
[2017-04-29] MEDS ORDERED: ROSUVASTATIN CA10 MG PO (15:07)
[2017-04-29 15:38] VITALS: BP 196/95
[2017-04-29 19:07] VITALS: BP 165/72
[2017-04-29 23:27] VITALS: BP 181/76
[2017-04-30 08:00] VITALS: BP 155/72
[2017-04-30 11:10] VITALS: BP 162/80
[2017-04-30 16:10] VITALS: BP 136/84
[2017-04-30 19:12] VITALS: BP 156/68
[2017-05-01 00:59] VITALS: BP 176/77
[2017-05-01 04:35] VITALS: BP 140/65
[2017-05-01 05:53] LABS: BASOPHIL (%) 0.5 % (0-1); EOSINOPHIL (%) 3.2 % (0-5); EOSINOPHIL COUNT 0.2 K/uL (0-0.3); HEMATOCRIT 34.3 % (36.0-46.0); HEMOGLOBIN 10.8 G/DL (11.9-15.5); IMMATURE GRANULOCYTE (%) 0.5 % (0.0-0.7); LYMPHOCYTE (%) 17.9 % (15-42); LYMPHOCYTE COUNT 1.1 K/uL (1.0-2.8); MCH 28.3 PG (29.0-34.0); MCHC 31.5 G/DL (30.0-36.0); MCV 89.8 FL (83-99); MONOCYTE (%) 8.3 % (3-12); MONOCYTE COUNT 0.5 K/uL (0-0.8); NEUTROPHIL (%) 69.6 % (45-76); NEUTROPHIL COUNT 4.4 K/uL (1.8-6.4); PLATELET COUNT 147 K/uL (156-360); RBC DIS.WIDTH-CV 15.6 % (11.8-14.6); RBC DIS.WIDTH-SD 51.4 % (39-53); RED BLOOD COUNT 3.82 M/uL (3.80-5.20); WHITE BLOOD COUNT 6.3 K/uL (4.1-10.2)
[2017-05-01 09:00] VITALS: BP 160/70
[2017-05-01 12:46] VITALS: BP 149/71
[2017-05-01 15:58] VITALS: BP 162/70
[2017-05-01 20:40] VITALS: BP 153/69
[2017-05-02 00:40] VITALS: BP 161/71
[2017-05-02 04:02] VITALS: BP 175/74
[2017-05-02 09:25] VITALS: BP 194/81
[2017-05-02 16:15] VITALS: BP 156/69
[2017-05-02 20:00] VITALS: BP 164/72
[2017-05-03] VITALS: BP 164/74
[2017-05-03 05:37] VITALS: BP 170/74
[2017-05-03 08:12] VITALS: BP 192/78
[2017-05-03 13:01] VITALS: BP 155/67
[2017-05-03 20:13] VITALS: BP 153/70
[2017-05-03 23:31] VITALS: BP 177/72
[2017-05-04 03:24] VITALS: BP 161/71
[2017-05-04 08:28] VITALS: BP 191/84
[2017-05-04 12:13] VITALS: BP 176/89
[2017-05-04 19:38] VITALS: BP 159/67
[2017-05-05 00:44] VITALS: BP 143/66
[2017-05-05 06:03] LABS: HEMATOCRIT 34.2 % (36.0-46.0); HEMOGLOBIN 10.6 G/DL (11.9-15.5); MCV 90.2 FL (83-99); PLATELET COUNT 167 K/uL (156-360); RBC DIS.WIDTH-CV 15.4 % (11.8-14.6); RBC DIS.WIDTH-SD 50.6 % (39-53); RED BLOOD COUNT 3.79 M/uL (3.80-5.20); WHITE BLOOD COUNT 5.8 K/uL (4.1-10.2)
[2017-05-05 06:26] LABS: CHLORIDE 104 MEQ/L (99-109); CREATININE 1.2 MG/DL (0.6-1.3); GFR ESTIMATE (CALCULATED) 46 mL/min/; GLUCOSE 165 mg/dL (70-99); MAGNESIUM 1.8 mg/dl (1.3-2.7); POTASSIUM 3.9 MEQ/L (3.7-5.4); SODIUM 142 MEQ/L (136-147); UREA NITROGEN (BUN) 12 mg/dL (9-23)
[2017-05-05 11:00] VITALS: BP 122/59
[2017-05-05] MEDS ORDERED: AMLODIPINE BESY10 MG PO (13:38)
[2017-05-05] MEDS ORDERED: TYLENOL WITH C1 EACH PO (13:40)
== END 2017-05-05 16:50 | DRG 304 ==
LOC: EME 09:29 → EDOF 13:27 → 5WEST 13:27 → EDOF 13:27 → ENRESERV 13:29 → EDOF 13:52 → ENRESERV 13:52 → 5WEST 15:17
PROVIDERS: Emergency Medicine; Internal Medicine; Student in an Organized Health Care Education/Training Program
DX: I10 Essential (primary) hypertension (principal); N39.0 Urinary tract infection, site not specified; S72.001A Fracture of unspecified part of neck of right femur, initial encounter for closed fracture; K21.9 Gastro-esophageal reflux disease without esophagitis; F03.90 Unspecified dementia, unspecified severity, without behavioral disturbance, psychotic disturbance, mood disturbance, and anxiety; E11.51 Type 2 diabetes mellitus with diabetic peripheral angiopathy without gangrene; I25.10 Atherosclerotic heart disease of native coronary artery without angina pectoris; E78.5 Hyperlipidemia, unspecified; M54.5 Low back pain; M85.80 Other specified disorders of bone density and structure, unspecified site; M25.569 Pain in unspecified knee; W18.30XA Fall on same level, unspecified, initial encounter; K29.70 Gastritis, unspecified, without bleeding; Z96.652 Presence of left artificial knee joint; S09.90XA Unspecified injury of head, initial encounter; Z96.641 Presence of right artificial hip joint; L29.9 Pruritus, unspecified; Z95.1 Presence of aortocoronary bypass graft; Z85.3 Personal history of malignant neoplasm of breast; I25.2 Old myocardial infarction; Y92.009 Unspecified place in unspecified non-institutional (private) residence as the place of occurrence of the external cause; Z68.1 Body mass index [BMI] 19.9 or less, adult; Z75.1 Person awaiting admission to adequate facility elsewhere; Z79.82 Long term (current) use of aspirin; Z79.899 Other long term (current) drug therapy
CPT/HCPCS: 70450; 71046; 72125; 72131; 72192; 80048; 80053; 81003; 82550; 83735; 84484; 85025; 85027; 87077; 87086; 87186; 92610 GN; 93005; 97530 GO; 97530 GP; 99281; 99285; G0378; G8978 GP CM; G8979 GP CL; G8987 GO CN; G8988 GO CL; J0696; J1650; J1956; J2270; J7030

== ENCOUNTER 2017-12-16 18:55 | Inpatient (IN) | payer OTHER ==
[~2017-12-16] VITALS: Ht 157.5 cm; Wt 59.9 kg
[~2017-12-16 18:55] MED LIST changes: +AMLODIPINE BESY10 MG PO; +CLONIDINE1 EAC1 TD; +ROSUVASTATIN CA10 MG PO; +TYLENOL WITH C1 EACH PO
[2017-12-16] MEDS ORDERED: LORAZEPAM1 MG PO (19:29)
[2017-12-16] MEDS ORDERED: SERTRALINE HCL50 MG PO (19:29)
[2017-12-16] MEDS ORDERED: MEMANTINE HCL10 MG PO (19:31)
[2017-12-16] MEDS ORDERED: GLIMEPIRIDE1 MG PO (19:31)
[2017-12-16] MEDS ORDERED: LOPRESSOR100 M1 PO (19:33)
[2017-12-16 21:15] LABS: HEMATOCRIT 31.7 % (36.0-46.0); HEMOGLOBIN 10.4 G/DL (11.9-15.5); MCH 28.5 PG (29.0-34.0); MCHC 32.8 G/DL (30.0-36.0); MCV 86.8 FL (83-99); PLATELET COUNT 129 K/uL (156-360); RBC DIS.WIDTH-CV 17.2 % (11.8-14.6); RBC DIS.WIDTH-SD 54.9 % (39-53); RED BLOOD COUNT 3.65 M/uL (3.80-5.20); WHITE BLOOD COUNT 7.5 K/uL (4.1-10.2)
[2017-12-16 21:25] LABS: CHLORIDE 105 mEq/L (99-109); POTASSIUM 3.8 mEq/L (3.7-5.4); SODIUM 140 mEq/L (136-147)
[2017-12-16 21:27] LABS: GLUCOSE 196 mg/dL (70-99)
[2017-12-16 21:31] LABS: GFR ESTIMATE (CALCULATED) 57 mL/min/
[2017-12-16 21:32] LABS: UREA NITROGEN (BUN) 14 mg/dL (9-23)
[2017-12-16 22:23] LABS: APPEARANCE CLEAR ((CLEAR)); BILIRUBIN NEGATIVE; BLOOD SMALL; COLOR YELLOW ((YELLOW)); GLUCOSE (STRIP) NEGATIVE; KETONES NEGATIVE; LEUKOCYTES TRACE; NITRITE NEGATIVE; PROTEIN (STRIP) >=500; SPECIFIC GRAVITY 1.023 (1.000-1.030)
[2017-12-16 22:39] LABS: BACTERIA NONE SEEN /HPF; EPITHELIAL CELLS RARE /HPF; MUCUS 1+ /LPF; RED BLOOD CELLS 0-5 /HPF (0-5); UCUL ADDED? NO; WHITE BLOOD CELLS 0-5 /HPF (0-5)
[2017-12-16] MEDS ORDERED: CLONIDINE1 EACH TD (23:53)
[2017-12-16] MEDS ORDERED: LIDODERM 5% P1 PATCH TD (23:53)
[2017-12-16] MEDS ORDERED: TYLENOL ARTHRI650 MG PO (23:53)
[2017-12-17 01:30] VITALS: BP 180/62; BP 180/82
[2017-12-17 04:15] VITALS: BP 158/66
[2017-12-17 08:04] VITALS: BP 157/69
[2017-12-17 11:28] VITALS: BP 178/98
[2017-12-17 15:51] VITALS: BP 160/58
[2017-12-18 00:16] VITALS: BP 161/77
[2017-12-18 08:01] VITALS: BP 138/60
[2017-12-18] MEDS ORDERED: FAMOTIDINE20 MG PO (12:26)
[2017-12-18] MEDS ORDERED: MORPHINE CON20 MG/M1 PO (12:42)
[2017-12-18] MEDS ORDERED: ANASPAZ0.125 MG PO (12:43)
[2017-12-18] MEDS ORDERED: ATIVAN0.5 MG PO (12:44)
== END 2017-12-18 15:02 | disposition hospice, home (50) | DRG 885 ==
LOC: EME 18:55 → 3EAST 23:50 → EDOF 23:50 → ENRESERV 23:52 → 3EAST 12-17 01:02
PROVIDERS: Emergency Medicine; Family Medicine Sports Medicine
DX: F33.9 Major depressive disorder, recurrent, unspecified (principal); F01.51 Vascular dementia, unspecified severity, with behavioral disturbance; F05 Delirium due to known physiological condition; N39.0 Urinary tract infection, site not specified; R45.1 Restlessness and agitation; F41.9 Anxiety disorder, unspecified; Z51.5 Encounter for palliative care; Z66 Do not resuscitate; E11.51 Type 2 diabetes mellitus with diabetic peripheral angiopathy without gangrene; E78.00 Pure hypercholesterolemia, unspecified; E78.5 Hyperlipidemia, unspecified; I10 Essential (primary) hypertension; I25.10 Atherosclerotic heart disease of native coronary artery without angina pectoris; K21.9 Gastro-esophageal reflux disease without esophagitis; R29.6 Repeated falls; Z96.641 Presence of right artificial hip joint; M17.11 Unilateral primary osteoarthritis, right knee; D64.9 Anemia, unspecified; R44.1 Visual hallucinations; Z74.01 Bed confinement status; Z91.81 History of falling; Z79.84 Long term (current) use of oral hypoglycemic drugs; Z79.82 Long term (current) use of aspirin; Z95.1 Presence of aortocoronary bypass graft; I25.2 Old myocardial infarction
CPT/HCPCS: 70450; 71045; 73502; 73552; 80048; 81003; 82948; 85027; 99281; 99285; J1650